=== PATIENT | male | born 1950 | race Caucasian/White ===

== ENCOUNTER → 2020-11-23 06:35 | Outpatient (CLI) | payer MEDICARE, SELFPAY ==
[2020-11-23 17:47] LABS: SARS-CoV-2 RNA PCR Negative
== END ==
PROVIDERS: PCP Family Medicine Adolescent Medicine; Visit Provider Family Medicine Adolescent Medicine
DX: R05.9 Cough, unspecified (principal); R09.81 Nasal congestion; Z20.822 Contact with and (suspected) exposure to COVID-19
CPT/HCPCS: C9803; U0003; U0005

== ENCOUNTER 2022-02-03 12:21 | Emergency (ER) | payer MEDICARE, SELFPAY ==
--- NOTE | ~2022-02-03 | CT_ITS ---
EXAMINATION: CT abdomen pelvis wo con DATE: 02/03/2022 14:20 INDICATION: Left flank pain and hematuria TECHNIQUE: Computed tomography (CT) of the abdomen and pelvis was performed without intravenous contr ast. Automated exposure control and iterative reconstruction technique were employed. The dose-length product was 181.37 mGy-cm. COMPARISON: None FINDINGS: Mild atelectasis at the lingula, right middle and right lower lobes. Heart size is normal. No pericar dial or pleural effusion. Multiple low-attenuation lesions scattered throughout the liver, a few incl uding the largest at the dome measuring 4.6 cm with relatively sharply defined margins consistent wit h hepatic cysts. A few of the smaller lesions, the largest in segment 7 of the liver measuring 1.5 cm demonstrated more ill-defined margins which could represent either cysts or hemangiomas. Spleen is n ot visualized and could be either developmentally or surgically absent. Gallbladder, pancreas, bilate ral adrenal glands and right kidney are normal. 4 x 2 mm nonobstructing stone at a lower pole calyx o f the left kidney. There is mild to moderate left hydroureteronephrosis extending to a pair of 4-5 mm stones in the mid to distal left ureter situated anterior to the mid left sacroiliac joint. No right -sided urolithiasis. There are several phleboliths in the pelvis bowels including the appendix are no rmal. Bladder is normal. Subtle approximately 1 cm cystic lesion within the prominently enlarged pros castro which measures 7.2 x 5.5 cm in maximal diameter. No free intraperitoneal gas or fluid. No pathol ogically enlarged abdominal or pelvic lymphadenopathy. Mild thoracolumbar dextrocurvature with mild l umbar and moderate lower thoracic spondylosis. IMPRESSION: 1. Left nephrolithiasis with a pair of obstructing 4-5 mm stones in the mid to distal left ureter wit h moderate left hydronephrosis. 2. Nonspecific small cystic region within the prominently enlarged prostate which measures 7.2 x 5.5 cm. Reviewed, dictated and finalized at location [facility] IMPRESSION: 1. Left nephrolithiasis with a pair of obstructing 4-5 mm stones in the mid to distal left ureter with moderate left hydronephrosis. 2. Nonspecific small cystic region within the prominently enlarged prostate whi ch measures 7.2 x 5.5 cm.
--- NOTE | ~2022-02-03 | XR_ITS ---
EXAM: XR abdomen/kub 1V DATE: 02/03/2022 15:48 HISTORY: track kidney stone . COMPARISON: 02/03/2022. FINDINGS: Clear lung bases. Normal bowel gas pattern. No organomegaly. Stable pair of 5 mm stones pr ojecting over the left sacrum. Pelvic phleboliths. Degenerative change in the lumbar spine and bilate ral hips. IMPRESSION: Unchanged obstructing left mid-distal left ureteral stones. Reviewed, dictated and finalized at location [facility]
[2022-02-03 12:22] VITALS: BP 168/90; PULSE 64; RESP 14; TEMP 36.7; O2SAT 97
[2022-02-03 13:06] LABS: Basophils Percent Auto 0.3 % (0.2-1.2); Eosinophils Percent Auto 0.3 % (0-4.4); Hematocrit 41.2 % (42.0-52.0); Hemoglobin 13.8 g/dL (14.0-18.0); Immature Granulocyte Absolute 0.06 K/mm3 (0.00-0.031); Immature Granulocyte Percent A 0.4 % (0-0.5); Lymphocytes Absolute Auto 2.99 K/mm3 (0.9-3.2); Mean Corpuscular HGB Conc 33.5 g/dl (32-36); Mean Corpuscular Hemoglobin 30.5 pg (26-34); Mean Corpuscular Volume 90.9 fl (80-100); Mean Platelet Volume 10.5 fl (7.4-10.4); Monocytes Absolute Auto 1.7 K/mm3 (0.1-0.6); Monocytes Percent Auto 12.6 % (2.6-8.5); Neutrophils Absolute Auto 8.8 K/mm3 (1.3-6.7); Neutrophils Percent Auto 64.4 % (45.5-73.1); Platelet Count Result 391 k/mm3 (150-375); Red Blood Count 4.53 M/mm3 (4.6-6.20); Red Cell Distribution Width 13.8 % (11.5-14.5); White Blood Count 13.6 K/mm3 (4.5-10.0)
[2022-02-03 13:11] LABS: Add Urine Microscopic? YES; Appearance Urine Clear (Clear); Bilirubin Urine Negative (Negative); Blood Urine 2+ (Negative); Color Urine Yellow (Yellow); Glucose Urine UA Negative (Negative); Ketones Urine Trace mg/dL (Negative); Leukocyte Esterase Ur Negative LEU/UL (Negative); Nitrate Urine Negative (Negative); Protein Urine 1+ mg/dL (Negative); Specific Grav Ur >= 1.030 (1.001-1.035); Urobilinogen Urine 0.2 mg/dL (<2.0)
[2022-02-03 13:15] LABS: Alanine Aminotransferase 14 U/L (6-50); Albumin Level 4.3 g/dL (3.5-5.1); Alkaline Phosphatase 97 U/L (38-126); Anion Gap 7 mmol/L (8-16); Aspartate Amino Transferase 32 U/L (17-59); Blood Urea Nitrogen 23 mg/dL (9-20); Calcium 8.5 mg/dL (8.4-10.2); Carbon Dioxide 27 mmol/L (22-30); Chloride 107 mmol/L (98-107); Estimated CRCL calculation 50 ml/min; Estimated Glomerular Filt Rate 55; Glucose 130 mg/dL (65-110); Potassium 3.6 mmol/L (3.4-5.0); Sodium 141 mmol/L (137-145)
--- NOTE | 2022-02-03 13:25 | ED.GENADULT ---
HPI - General Adult General Chief complaint: Urogenital-Male Stated complaint: blood in urine, sent over from Urgent Care Time Seen by Provider: 02/03/22 13:05 History of Present Illness HPI narrative: 71-year-old male here for evaluation of left flank pain over the past several days. Patient states the pain is intermittent but severe in nature, when it is present it is about a 10 out of 10. Has attempted warm compresses and rubbing the area without significant relief. He also notes several episodes of blood in his urine over the past 6 weeks but this is resolved without intervention. Denies fevers, chills, nausea, vomiting, dysuria, urgency or frequency. Related Data Allergies Allergy/AdvReac Type Severity Reaction Status Date / Time No Known Allergies Allergy Verified 02/03/22 12:42 Review of Systems Review of Systems: Gen.: Denies fevers or chills Eyes: Denies eye pain or visual change ENT: Denies congestion Respiratory: Denies shortness of breath or cough CV: Denies chest pain or palpitations GI: Denies abdominal pain nausea, emesis or diarrhea denies burning, urgency, frequency or hematuria Musculoskeletal: Denies back pain or muscle pain Neuro: Denies numbness, tingling, weakness or focal weakness Skin: Denies rash Except as documented, all other systems reviewed and negative Course Vital Signs Vital signs: Vital Signs Temperature 98.1 F 02/03/22 12:22 Pulse Rate 64 02/03/22 12:22 Respiratory Rate 14 02/03/22 12:22 Blood Pressure 168/90 H 02/03/22 12:22 Pulse Oximetry 97 02/03/22 12:22 Temperature 98.1 F 02/03/22 12:22 Pulse Rate 64 02/03/22 12:22 Respiratory Rate 14 02/03/22 12:22 Blood Pressure 168/90 H 02/03/22 12:22 Pulse Oximetry 97 02/03/22 12:22 Medical Decision Making [facility] Narrative Medical decision making narrative: 71 yo M here for evaluation of intermittent flank pain and hematuria for the past several days. patient is non-toxic appearing and actually pain free at time of eval; declining pain meds. basic labs unremarkable. UA with blood but no signs of infection. ct abd/pelvis with evidence of two obstructing stones which likely explains his sx. stones were seen on [facility]. he will be discharged home with urine strainer, flomax, prn pain meds and urology f/u. patient understands he should return to the ED at any time if his pain is too severe at home, if he cannot tolerate food or fluids, or develops a fever. Vital Signs Vital Signs: Vital Signs Temperature 98.1 F 02/03/22 12:22 Pulse Rate 64 02/03/22 12:22 Respiratory Rate 14 02/03/22 12:22 Blood Pressure 168/90 H 02/03/22 12:22 Pulse Oximetry 97 02/03/22 12:22 Temperature 98.1 F 02/03/22 12:22 Pulse Rate 64 02/03/22 12:22 Respiratory Rate 14 02/03/22 12:22 Blood Pressure 168/90 H 02/03/22 12:22 Pulse Oximetry 97 02/03/22 12:22 Lab Data 02/03/22 12:59 02/03/22 12:59 Labs: Lab Results 02/03/22 02/03/22 02/03/22 Range/Units 12:59 12:59 12:59 WBC 13.6 H (4.5-10.0) K/mm3 RBC 4.53 L (4.6-6.20) M/mm3 Hgb 13.8 L (14.0-18.0) g/dL Hct 41.2 L (42.0-52.0) % MCV 90.9 (80-100) fl MCH 30.5 (26-34) pg MCHC 33.5 (32-36) g/dl RDW 13.8 (11.5-14.5) % Plt Count 391 H (150-375) k/mm3 MPV 10.5 H (7.4-10.4) fl Immature Gran % (Auto) 0.4 (0-0.5) % Neut % (Auto) 64.4 (45.5-73.1) % Lymph % (Auto) 22.0 (18.3-44.2) % Davie % (Auto) 12.6 H (2.6-8.5) % Eos % (Auto) 0.3 (0-4.4) % Baso % (Auto) 0.3 (0.2-1.2) % Lymph # (Auto) 2.99 (0.9-3.2) K/mm3 Davie # (Auto) 1.7 H (0.1-0.6) K/mm3 Eos # (Auto) 0.0 (0-0.3) K/mm3 Baso # (Auto) 0.0 (0.0-0.1) K/mm3 Abs Immat Gran (auto) 0.06 H (0.00-0.031) K/mm3 Absolute Neuts (auto) 8.8 H (1.3-6.7) K/mm3 Absolute Nucleated RBC 0.0 (0.0-0.012) K/mm3 Nucleated RBC % 0.0 (0.0-0.2) % Sodium 141 (137-145) mmol/L
[2022-02-03 13:26] LABS: Mucus Urine Rare /lpf; RBC Urine 21-50 /hpf (0-2); Squamous Epithelial Cell Urine Rare /hpf (Few); WBC Urine 0-3 /hpf
[2022-02-03] MEDS: HYDROcodone/acetaminophen (*CRX) 5-325 MG TABLET 1 TAB PO (15:58)
== END 2022-02-03 16:34 | disposition home or self-care (01) ==
PROVIDERS: Emergency Medicine; Emergency Provider Physician Assistant; PCP Family Medicine Adolescent Medicine
DX: N13.2 Hydronephrosis with renal and ureteral calculous obstruction (principal); N42.83 Cyst of prostate; N40.0 Benign prostatic hyperplasia without lower urinary tract symptoms
CPT/HCPCS: 36415; 74018; 74176; 80053; 81001; 85025; 99284; A9270